=== PATIENT | male | born 1980 | race Two or more races ===

== ENCOUNTER 2023-03-30 11:23 | Day surgery (SDC) | payer MEDICAID ==
[2023-03-30] VITALS (20 sets, daily range): BP systolic 121–160; BP diastolic 78–111
[~2023-03-30] VITALS: Ht 180.3 cm; Wt 102.1 kg
[~2023-03-30 11:23] MED LIST: ASPI-1397 PO; ATOR40TA72 PO; BUPR300T53 PO; CLOP75TA34 PO; DOCUMENT DATE & TIME OF BETA-BLOCKER PO ONE; INDOCYANINE GREEN 25 MG/10 ML VIAL IV ONE; ISOS30TA84 PO; METO-384 PO; OMEP20CA16 PO; QUET300T20 PO; SITA1TAB2 PO; cefazolin 2gm/D5W 100mL 100 ML IV ONE; famotidine 20mg tablet PO ONE; ringers solution, lacted 1,000 ML IV SCH
[2023-03-30] MEDS ORDERED: LIDOcaine 1% 30ml preserv. free vial ONE (13:21)
[2023-03-30] MEDS ORDERED: BUPIVAcaine/PF 2.5 mg/ml (0.25%) 30ml vial ONE (13:21)
[2023-03-30] MEDS ORDERED: BUPIVAcaine/PF 2.5 mg/ml (0.25%) 30ml vial IJ ONE (14:07)
[2023-03-30] MEDS ORDERED: LIDOcaine 1% 30ml preserv. free vial IJ ONE (14:09)
[2023-03-30] MEDS ORDERED: morphine 4 MG/ML inj SYRINge IV PRN (14:40)
[2023-03-30] MEDS ORDERED: ondansetron/PF 4mg/2ml inj IV PRN (14:40)
[2023-03-30] MEDS ORDERED: ringers solution, lacted 1,000 ML IV SCH (14:40)
[2023-03-30] MEDS ORDERED: proCHLORperazine 10 MG/2 ml inj IV PRN (14:40)
[2023-03-30] MEDS ORDERED: morphine 2 MG/ML inj. syringe IV PRN (14:40)
[2023-03-30] MEDS ORDERED: meperidine/PF 25mg/ml syringe IV PRN ×2 (14:40)
[2023-03-30] MEDS ORDERED: oxyCODONE/APAP 5-325mg tablet PO PRN (15:00)
--- NOTE | 2023-03-30 15:00 | NUR ---
Received from OR via [facility], accompanied by Anesthesiologist DR MEDEL and report given by Anesthesiolgist. PT PRESENTS WITH PIV 20G RIGHT HAND, ABD PAIN 08/29. PT MEDICATED FOR ABD PAIN, SPO2 100% 6L MASK, LR RUNNING AT 100MLS/HR, ABD DRESSING CDI.VSS. Addendum: 03/30/23 at 1519 by Jaquelin Fernandez RN, RN Amended: Links added.
[2023-03-30] MEDS: meperidine/PF 25mg/ml syringe IV PRN ×3 (15:14→16:04)
--- NOTE | 2023-03-30 18:00 | NUR ---
ABLE TO SAFELY AMBULATE AND TRANSFER SELF. IV TAKEN OUT WITHOUT ANY COMPLICATIONS. ALL DISCHARGE INSTRUCTIONS COVERED WITH PATIENT AND ALL QUESTIONS ANSWERED. PATIENT TAKEN OUT VIA WHEELCHAIR TO PERSONAL VEHICLE WHERE FAMILY DROVE PATIENT HOME. Addendum: 03/30/23 at 1849 by Jaquelin Fernandez RN, RN Amended: Links added.
== END 2023-03-30 18:00 | disposition home or self-care (01) ==
LOC: PRE-OP 11:23
PROVIDERS: ATTEND Surgery
DX: K81.1 Chronic cholecystitis (principal); I25.10 Atherosclerotic heart disease of native coronary artery without angina pectoris; E11.9 Type 2 diabetes mellitus without complications; F32.A Depression, unspecified; J44.9 Chronic obstructive pulmonary disease, unspecified; G47.30 Sleep apnea, unspecified; I25.2 Old myocardial infarction; I11.0 Hypertensive heart disease with heart failure; I50.9 Heart failure, unspecified; K21.9 Gastro-esophageal reflux disease without esophagitis; Z86.73 Personal history of transient ischemic attack (TIA), and cerebral infarction without residual deficits; Z88.8 Allergy status to other drugs, medicaments and biological substances; Z88.1 Allergy status to other antibiotic agents; Z79.01 Long term (current) use of anticoagulants; Z79.84 Long term (current) use of oral hypoglycemic drugs; F17.210 Nicotine dependence, cigarettes, uncomplicated; Z72.89 Other problems related to lifestyle; Z95.5 Presence of coronary angioplasty implant and graft; Z82.3 Family history of stroke; Z82.49 Family history of ischemic heart disease and other diseases of the circulatory system; Z83.3 Family history of diabetes mellitus
CPT/HCPCS: 47563; 82948; 93005; J0690; J0780; J2175; J2270; J2405; J3490; J7030; J7120; S2900; Z7506; Z7508; Z7512; A4215; A4615; A4618; A7000